=== PATIENT | male | born 1970 | race Caucasian/White ===

== ENCOUNTER 2016-03-15 17:56 | Emergency (ER) | payer MEDICARE, OTHER ==
[~2016-03-15] VITALS: Ht 152.4 cm; Wt 71.7 kg
[2016-03-15 19:49] LABS: Basophils # (auto) 0 uL; Basophils % (auto) 0.3 % (0.0-2.0); Eosinophils # (auto) 0.1 uL; Eosinophils % (auto) 0.4 % (0.0-7.0); Hematocrit 47.2 % (41.0-53.0); Hemoglobin 14.8 g/dL (13.5-17.5); Lymphocytes # (auto) 1.7 uL; Mean Corpuscular Hemoglobin 30.1 pg (28.0-32.0); Mean Corpuscular Hgb Conc. 31.3 g/dL (32.0-36.0); Mean Corpuscular Volume 96.2 fL (80.0-100.0); Mean Platelet Volume 9.5 fL (7.4-10.4); Monocytes # (auto) 1.3 uL; Neutrophils # (auto) 9.8 uL; Neutrophils % (auto) 76.3 % (37.0-80.0); Platelet Count (auto) 221 10^3/uL (140-450); Red Cell Distribution Width 13.8 % (11.6-16.0); White Blood Cell 12.8 10^3/uL (4.4-10.8)
[2016-03-15 20:42] LABS: Albumin 3.2 g/dL (3.4-5.0); Calcium 9.3 mg/dL (8.5-10.1)
[2016-03-15 20:45] LABS: BUN/Creatinine Ratio 15.2
[2016-03-15 20:47] LABS: Bilirubin, Total 0.2 mg/dL (0.2-1.0); Total Protein 8.7 g/dL (6.4-8.2)
[2016-03-16] MEDS ORDERED: CLOB2.5S OR (03:53)
[2016-03-16] MEDS ORDERED: DIVA500T53 PO (03:53)
[2016-03-16 05:45] VITALS: BP 112/70
[2016-03-16] MEDS ORDERED: cefTRIAXone 1GM/50ML D5W 50 ML IV ONE (05:45)
[2016-03-16] MEDS ORDERED: cefTRIAXone SOD 1,000 MG VL ONE (05:55)
== END 2016-03-16 06:54 | disposition home or self-care (01) ==
LOC: ER 18:11
DX: J06.9 Acute upper respiratory infection, unspecified (principal); J90 Pleural effusion, not elsewhere classified; K40.90 Unilateral inguinal hernia, without obstruction or gangrene, not specified as recurrent
CPT/HCPCS: 36415; 74176; 80053; 83690; 85025; 96365; 99285; J0696

== ENCOUNTER 2023-07-09 14:14 | Emergency (ER) | payer MEDICARE, MEDICAID ==
[~2023-07-09] VITALS: Ht 162.6 cm; Wt 81.8 kg
[~2023-07-09 14:14] MED LIST: CLOB2.5S OR; DIVA-91 PO
[2023-07-09 15:00] VITALS: PULSE 105; RESP 20; O2SAT 98
[2023-07-09] MEDS: DexAMETHasone SOD PHOS 10MG/1ML VIAL INJ IM ONE (15:18)
[2023-07-09] MEDS: ALBUTEROL SULF 2.5 MG/0.5ML(0.5%) NEB SOLN NEB ONE (15:22)
[2023-07-09] MEDS: IPRATROPIUM BROM 0.5 MG/2.5ML INH SOL NEB ONE (15:22)
[2023-07-09 15:35] LABS: Hematocrit 51.1 % (41.0-53.0); Hemoglobin 16.5 g/dL (13.5-17.5); Mean Corpuscular Hemoglobin 30.1 pg (28.0-32.0); Mean Corpuscular Hgb Conc. 32.4 g/dL (32.0-36.0); Mean Corpuscular Volume 92.9 fL (80.0-100.0); Red Cell Distribution Width 14.5 % (11.8-14.3); White Blood Cell 7.3 10^3/uL (4.4-10.8)
[2023-07-09 15:41] LABS: Basophils % (manual) 0 (0.0-2.0); Blast Cells 0; Metamyelocytes % 0; Myelocytes % 0; Promyelocytes % 0; Reactive Lymphocytes 0
[2023-07-09 15:52] LABS: Alkaline Phosphatase 62 U/L (46-116); Anion Gap 5 (5-15); Aspartate Aminotransferase 13 U/L (13-40); BUN/Creatinine Ratio 15.9 (10.0-20.0); Blood Urea Nitrogen 13 mg/dL (9-23); Calcium 9.7 mg/dL (8.7-10.4); Carbon Dioxide 33 mmol/L (20-30); Chloride 98 mmol/L (98-107); Glucose 141 mg/dL (74-106); Lipase 37 U/L (12-53); Sodium 136 mmol/L (136-145)
[2023-07-09 15:53] LABS: Bilirubin, Total 0.2 mg/dL (0.2-1.0)
[2023-07-09 15:54] LABS: Alanine Aminotransferase < 9 U/L (7-40)
[2023-07-09 16:58] LABS: Band Neutrophils % (manual) 9; Eosinophils % (manual) 1 (0-7); Lymphocytes % (manual) 18 (10.0-50.0); Monocytes % (manual) 18 (0-12); Platelet Estimate Adequate
[2023-07-09] MEDS ORDERED: DEXT60TA4 PO (17:19)
[2023-07-09 18:00] VITALS: BP 118/61; PULSE 98; RESP 26; O2SAT 90
== END 2023-07-09 18:45 | disposition home or self-care (01) ==
LOC: ER 14:14 → EDUNIT# 14:14 → EDBD 14:14 → ER 18:45
DX: J06.9 Acute upper respiratory infection, unspecified (principal); G80.9 Cerebral palsy, unspecified
CPT/HCPCS: 36415; 71045; 80053; 83605; 83690; 83880; 84484; 85007; 85027; 93005; 94640; 96372; 99285; J1100; J7644

== ENCOUNTER 2023-07-12 12:51 | Inpatient (IN) | payer MEDICARE, MEDICAID ==
[~2023-07-12] VITALS: Ht 154.9 cm; Wt 79.3 kg
[~2023-07-12 12:51] MED LIST changes: +DEXT60TA4 PO
[2023-07-12] MEDS: ALBUTEROL SULF 2.5 MG/0.5ML(0.5%) NEB SOLN NEB ONE (14:12)
[2023-07-12] MEDS: IPRATROPIUM BROM 0.5 MG/2.5ML INH SOL NEB ONE (14:12)
[2023-07-12 14:35] VITALS: PULSE 84; RESP 22; O2SAT 94
[2023-07-12 14:46] LABS: COVID19 ANTIGEN SOFIA FIA NEGATIVE (NEGATIVE)
[2023-07-12 14:47] LABS: Basophils # (auto) 0.1 10 ^3/uL (0-0.2); Basophils % (auto) 0.7 % (0.0-2.0); Eosinophils # (auto) 0.1 10 ^3/uL (0-0.8); Eosinophils % (auto) 0.7 % (0.0-7.0); Hematocrit 48.2 % (41.0-53.0); Hemoglobin 15.9 g/dL (13.5-17.5); Lymphocytes # (auto) 2.5 10 ^3/uL (0.4-5.4); Lymphocytes % (auto) 30.5 % (10.0-50.0); Mean Corpuscular Hemoglobin 30.5 pg (28.0-32.0); Mean Corpuscular Hgb Conc. 33.1 g/dL (32.0-36.0); Mean Corpuscular Volume 92.3 fL (80.0-100.0); Monocytes # (auto) 1.3 10 ^3/uL (0-1.3); Monocytes % (auto) 15.6 % (0.0-12.0); Neutrophils # (auto) 4.3 10 ^3/uL (1.6-8.6); Neutrophils % (auto) 52.5 % (37.0-80.0); Nucleated Red Blood Cells % 0.5 %; Red Blood Cells 5.22 10^6/uL (4.5-5.90); Red Cell Distribution Width 14.2 % (11.8-14.3); White Blood Cell 8.1 10^3/uL (4.4-10.8)
[2023-07-12 14:54] LABS: Chloride 96 mmol/L (98-107); Potassium 3.8 mmol/L (3.5-5.1); Sodium 134 mmol/L (136-145)
[2023-07-12 14:55] LABS: Anion Gap 2 (5-15); Calcium 9.3 mg/dL (8.7-10.4); Carbon Dioxide 36 mmol/L (20-30)
[2023-07-12 15:00] LABS: Blood Urea Nitrogen 13 mg/dL (9-23); Glucose 90 mg/dL (74-106)
[2023-07-12 15:06] LABS: Rapid Influenza A Negative (Negative); Rapid Influenza B Negative (Negative)
[2023-07-12] MEDS: LORazepam 2MG/ML-1ML VIAL ONE (15:58)
[2023-07-12] MEDS ORDERED: AZITHROMYCIN 500MG/ 250ML 250 ML IV ONE (16:15)
[2023-07-12] MEDS ORDERED: IPRATROPIUM BROM 0.5 MG/2.5ML INH SOL NEB PRN ×2 (16:15→16:30)
[2023-07-12] MEDS ORDERED: cefTRIAXone 1GM/50ML D5W 50 ML IV ONE (16:15)
[2023-07-12] MEDS ORDERED: ONDANSETRON HCL 4 MG/2 ML VIAL IV PRN ×2 (16:15→16:30)
[2023-07-12] MEDS ORDERED: ALBUTEROL SULF 2.5 MG/0.5ML(0.5%) NEB SOLN NEB PRN ×2 (16:15→16:30)
[2023-07-12] MEDS ORDERED: SODIUM CHLORIDE 0.9% 1,000 ML IV ONE (16:15)
[2023-07-12 16:19] VITALS: BP 141/86; PULSE 88; RESP 18; TEMP 98.9
[2023-07-12] MEDS ORDERED: LORazepam 2MG/ML-1ML VIAL IV PRN (16:30)
[2023-07-12] MEDS: AZITHROMYCIN 500MG/ 250ML 250 ML IV ONE (16:30)
[2023-07-12] MEDS: SODIUM CHLORIDE 0.9% 1,000 ML IV ONE (16:30)
[2023-07-12] MEDS ORDERED: QUET25TA37 PO (17:44)
[2023-07-12] MEDS ORDERED: ALBUTEROL SULF 2.5 MG/0.5ML(0.5%) NEB SOLN NEB SCH (18:00)
[2023-07-12] MEDS ORDERED: IPRATROPIUM BROM 0.5 MG/2.5ML INH SOL NEB SCH (18:00)
[2023-07-12 19:15] VITALS: PULSE 84; RESP 22; O2SAT 94
[2023-07-12] MEDS: cefTRIAXone 1GM/50ML D5W 50 ML IV ONE (19:59)
[2023-07-12 20:50] VITALS: PULSE 94; RESP 18; O2SAT 95
[2023-07-12 20:56] VITALS: PULSE 95; RESP 18; O2SAT 94
[2023-07-12] MEDS: ALBUTEROL SULF 2.5 MG/0.5ML(0.5%) NEB SOLN NEB SCH (21:21)
[2023-07-12] MEDS: IPRATROPIUM BROM 0.5 MG/2.5ML INH SOL NEB SCH (21:21)
[2023-07-12] MEDS ORDERED: PATIENTS OWN MEDICATION (Divalproex Sodium (Depakote) 1 TAB) PO SCH (22:00)
[2023-07-12] MEDS: PATIENTS OWN MEDICATION (Divalproex Sodium (Depakote) 1 TAB) PO SCH (23:19)
[2023-07-13] VITALS (18 sets, daily range): BP systolic 117–132; BP diastolic 65–78; PULSE 89–107; RESP 18–22; TEMP 98.1–98.5; O2SAT 90–99
[2023-07-13 05:10] LABS: Basophils # (auto) 0 10 ^3/uL (0-0.2); Basophils % (auto) 0.4 % (0.0-2.0); Eosinophils # (auto) 0.1 10 ^3/uL (0-0.8); Eosinophils % (auto) 0.6 % (0.0-7.0); Hematocrit 41.4 % (41.0-53.0); Hemoglobin 13.2 g/dL (13.5-17.5); Lymphocytes # (auto) 1.6 10 ^3/uL (0.4-5.4); Lymphocytes % (auto) 19.5 % (10.0-50.0); Mean Corpuscular Hemoglobin 30.1 pg (28.0-32.0); Mean Corpuscular Volume 94.1 fL (80.0-100.0); Monocytes # (auto) 1.4 10 ^3/uL (0-1.3); Monocytes % (auto) 16.6 % (0.0-12.0); Neutrophils # (auto) 5.2 10 ^3/uL (1.6-8.6); Neutrophils % (auto) 62.9 % (37.0-80.0); Nucleated Red Blood Cells % 0.2 %; White Blood Cell 8.3 10^3/uL (4.4-10.8)
[2023-07-13 05:23] LABS: Alanine Aminotransferase < 9 U/L (7-40); Albumin 3.1 g/dL (3.2-4.8); Alkaline Phosphatase 45 U/L (46-116); Anion Gap 2 (5-15); Aspartate Aminotransferase 14 U/L (13-40); Blood Urea Nitrogen 8 mg/dL (9-23); Calcium 7.7 mg/dL (8.7-10.4); Carbon Dioxide 34 mmol/L (20-30); Chloride 101 mmol/L (98-107); Glucose 80 mg/dL (74-106); Potassium 3.6 mmol/L (3.5-5.1); Sodium 137 mmol/L (136-145)
[2023-07-13 05:24] LABS: Bilirubin, Total < 0.2 mg/dL (0.2-1.0); Total Protein 6.2 g/dL (5.7-8.2)
[2023-07-13] MEDS ORDERED: cefTRIAXone 1GM/50ML D5W 50 ML IV SCH (09:00)
[2023-07-13] MEDS: cefTRIAXone 1GM/50ML D5W 50 ML IV SCH (09:00)
[2023-07-13] MEDS ORDERED: ENOXAPARIN SOD 40 MG/0.4 ML SYRINGE SC SCH (10:00)
[2023-07-13] MEDS ORDERED: AZITHROMYCIN 500MG/ 250ML 250 ML IV SCH (10:00)
[2023-07-13] MEDS: ENOXAPARIN SOD 40 MG/0.4 ML SYRINGE SC SCH (10:22)
[2023-07-13] MEDS: AZITHROMYCIN 500MG/ 250ML 250 ML IV SCH (10:22)
[2023-07-13] MEDS ORDERED: DIVA250T12 PO (10:29)
[2023-07-13] MEDS ORDERED: DIVA500T13 PO (10:46)
[2023-07-13] MEDS ORDERED: CLOB20TA3 PO (10:48)
[2023-07-13] MEDS ORDERED: LAMO200T62 OR (10:50)
[2023-07-13 11:37] LABS: INR 1.06 (0.9-1.15); Partial Thromboplastin Time 31.7 SEC (24.5-34.5); Prothrombin Time 11.2 sec (9.3-11.8)
[2023-07-13] MEDS ORDERED: PIPERACILLIN-TAZOB 3.375GM 100 ML IV SCH (22:00)
[2023-07-13] MEDS: PIPERACILLIN-TAZOB 3.375GM 100 ML IV SCH (22:12)
[2023-07-13] MEDS: [UNRECOGNIZED DRUG - OTHER] PO SCH (22:14)
[2023-07-13] MEDS: DIVALPROEX 125 MG PO SCH (22:14)
[2023-07-14] VITALS (59 sets, daily range): BP systolic 87–136; BP diastolic 57–98; PULSE 81–109; RESP 15–22; TEMP 97.7–101.7; O2SAT 90–100
[2023-07-14 06:46] LABS: Basophils # (auto) 0 10 ^3/uL (0-0.2); Basophils % (auto) 0.1 % (0.0-2.0); Eosinophils # (auto) 0 10 ^3/uL (0-0.8); Eosinophils % (auto) 0.4 % (0.0-7.0); Hematocrit 49.3 % (41.0-53.0); Hemoglobin 16.3 g/dL (13.5-17.5); Lymphocytes # (auto) 1.2 10 ^3/uL (0.4-5.4); Lymphocytes % (auto) 13.9 % (10.0-50.0); Mean Corpuscular Hemoglobin 30.7 pg (28.0-32.0); Mean Corpuscular Hgb Conc. 33.2 g/dL (32.0-36.0); Mean Corpuscular Volume 92.6 fL (80.0-100.0); Monocytes # (auto) 1.6 10 ^3/uL (0-1.3); Monocytes % (auto) 17.8 % (0.0-12.0); Neutrophils % (auto) 67.8 % (37.0-80.0); Nucleated Red Blood Cells % 0.1 %; Red Blood Cells 5.32 10^6/uL (4.5-5.90); Red Cell Distribution Width 14.3 % (11.8-14.3); White Blood Cell 8.8 10^3/uL (4.4-10.8)
[2023-07-14 07:04] LABS: Alanine Aminotransferase 10 U/L (7-40); Albumin 3.7 g/dL (3.2-4.8); Alkaline Phosphatase 57 U/L (46-116); Anion Gap 5 (5-15); Aspartate Aminotransferase 21 U/L (13-40); BUN/Creatinine Ratio 8.1 (10.0-20.0); Bilirubin, Total 0.2 mg/dL (0.2-1.0); Blood Urea Nitrogen 6 mg/dL (9-23); Calcium 9.5 mg/dL (8.7-10.4); Carbon Dioxide 33 mmol/L (20-30); Chloride 97 mmol/L (98-107); Glucose 85 mg/dL (74-106); Potassium 4.4 mmol/L (3.5-5.1); Sodium 135 mmol/L (136-145); Total Protein 7.7 g/dL (5.7-8.2)
[2023-07-14] MEDS: VALPROATE INJ 500 MG in SODIUM CHL 0.9% 100 ML IV SCH (10:30)
[2023-07-14 10:37] LABS: Base Excess 5.8 mmol/L (-2.0-2.0)
[2023-07-14] MEDS: ROCURONIUM 10MG/ML 10ML VIAL IV ONE ×3 (11:35→11:58)
[2023-07-14] MEDS: ETOMIDATE (2MG/ML) 20ML VIAL IV ONE ×4 (11:35→11:57)
[2023-07-14] MEDS: MIDAZOLAM DRIP 50 mg/50mL 50 ML IV ONE (11:36)
[2023-07-14] MEDS: fentaNYL Drip 2500mCg/250mlNS 250 ML IV ONE (11:36)
[2023-07-14 11:43] LABS: Base Excess 8.8 mmol/L (-2.0-2.0)
[2023-07-14] MEDS: NOREPINEPHRINE 8 MG/250ML KIT 250 ML IV ONE (11:59)
[2023-07-14] MEDS: MIDAZOLAM DRIP 50 mg/50mL 50 ML IV SCH (12:00)
[2023-07-14] MEDS: fentaNYL Drip 2500mCg/250mlNS 250 ML IV SCH (12:00)
[2023-07-14 12:29] LABS: Urine Bacteria None Seen /hpf (None Seen)
[2023-07-14 12:36] LABS: Urine Blood 3+ /uL (Negative); Urine Clarity Clear (Clear); Urine Color Yellow (Yellow); Urine Protein, UAD 1+ (Negative); Urine Specific Gravity 1.026 (1.001-1.035); Urine Urobilinogen Normal (Negative); Urine WBC 3 /hpf (0 - 3)
[2023-07-14 13:20] LABS: Base Excess 7.6 mmol/L (-2.0-2.0)
[2023-07-14] MEDS: NOREPINEPHRINE 8 MG/250ML KIT 250 ML IV SCH (14:00)
[2023-07-14] MEDS: PROPOFOL 100 ML IV SCH (14:15)
[2023-07-14] MEDS: ACETAMINOPHEN 650 MG RECT SUPP PR PRN (15:26)
[2023-07-14] MEDS: VALPROATE INJ 250 MG in SODIUM CHL 0.9% 50 ML IV SCH (18:19)
[2023-07-15] VITALS (111 sets, daily range): BP systolic 83–121; BP diastolic 45–77; PULSE 72–119; RESP 12–86; TEMP 99.3–101.8; O2SAT 92–100
[2023-07-15 06:54] LABS: Hematocrit 45.6 % (41.0-53.0); Hemoglobin 14.9 g/dL (13.5-17.5); Mean Corpuscular Hemoglobin 30.2 pg (28.0-32.0); Mean Corpuscular Hgb Conc. 32.7 g/dL (32.0-36.0); Mean Corpuscular Volume 92.5 fL (80.0-100.0); Red Blood Cells 4.93 10^6/uL (4.5-5.90); Red Cell Distribution Width 14.3 % (11.8-14.3); White Blood Cell 6.9 10^3/uL (4.4-10.8)
[2023-07-15 07:02] LABS: Alanine Aminotransferase 22 U/L (7-40); Albumin 3.4 g/dL (3.2-4.8); Alkaline Phosphatase 57 U/L (46-116); Anion Gap 7 (5-15); Aspartate Aminotransferase 47 U/L (13-40); BUN/Creatinine Ratio 11.3 (10.0-20.0); Blood Urea Nitrogen 7 mg/dL (9-23); Calcium 8.7 mg/dL (8.5-10.1); Carbon Dioxide 32 mmol/L (20-30); Chloride 97 mmol/L (98-107); Glucose 86 mg/dL (74-106); Potassium 3.3 mmol/L (3.5-5.1); Sodium 136 mmol/L (136-145)
[2023-07-15 07:04] LABS: Bilirubin, Total 0.6 mg/dL (0.2-1.0)
[2023-07-15 07:11] LABS: Basophils % (manual) 0 (0.0-2.0); Blast Cells 0; Eosinophils % (manual) 0 (0-7); Metamyelocytes % 0; Myelocytes % 0; Promyelocytes % 0; Reactive Lymphocytes 0
[2023-07-15 07:45] LABS: Base Excess 4.1 mmol/L (-2.0-2.0)
[2023-07-15 08:29] LABS: Blood Alcohol < 3.0 mg/dL (<10); Magnesium 1.9 mg/dL (1.6-2.6)
[2023-07-15 08:30] LABS: Band Neutrophils % (manual) 12; Lymphocytes % (manual) 21 (10.0-50.0); Monocytes % (manual) 10 (0-12); Phosphorus 3.6 mg/dL (2.4-5.1); Platelet Estimate Adequate
[2023-07-15] MEDS: POTASSIUM CHL 20MEQ/100ML 100 ML IV ONE (08:38)
[2023-07-15] MEDS ORDERED: Jevity 1.2 Cal/Fiber 1 Liter GT SCH ×2 (09:30→09:45)
[2023-07-15] MEDS: LAMOTRIGINE 200 MG PO SCH (10:00)
[2023-07-15] MEDS ORDERED: PANTOPRAZOLE 40 MG/10 ML VIAL INJ IV SCH (10:00)
[2023-07-15] MEDS: PANTOPRAZOLE 40 MG/10 ML VIAL INJ IV SCH (10:19)
[2023-07-15] MEDS: FUROSEMIDE 40 MG/4 ML VIAL IV SCH (10:19)
[2023-07-15] MEDS: CLOBAZAM 20 MG PO SCH (10:27)
[2023-07-15] MEDS: MEROPENEM 2GM/ 250ML 250 ML IV SCH (13:48)
[2023-07-15] MEDS: ACETAMINOPHEN 325 MG TAB PO PRN (14:47)
[2023-07-16] VITALS (111 sets, daily range): BP systolic 83–130; BP diastolic 38–81; PULSE 71–122; RESP 15–22; TEMP 97–101.3; O2SAT 93–100
[2023-07-16 05:57] LABS: Hematocrit 43.9 % (41.0-53.0); Hemoglobin 14.4 g/dL (13.5-17.5); Mean Corpuscular Hemoglobin 30.4 pg (28.0-32.0); Mean Corpuscular Hgb Conc. 32.7 g/dL (32.0-36.0); Mean Corpuscular Volume 92.9 fL (80.0-100.0); Red Blood Cells 4.73 10^6/uL (4.5-5.90); Red Cell Distribution Width 14.4 % (11.8-14.3); White Blood Cell 8.8 10^3/uL (4.4-10.8)
[2023-07-16 06:00] LABS: Band Neutrophils % (manual) 0; Basophils % (manual) 0 (0.0-2.0); Blast Cells 0; Metamyelocytes % 0; Myelocytes % 0; Promyelocytes % 0; Reactive Lymphocytes 0
[2023-07-16 06:31] LABS: Alanine Aminotransferase 84 U/L (7-40); Albumin 3.3 g/dL (3.2-4.8); Alkaline Phosphatase 62 U/L (46-116); Anion Gap 3 (5-15); Aspartate Aminotransferase 147 U/L (13-40); BUN/Creatinine Ratio 15.4 (10.0-20.0); Bilirubin, Total 0.5 mg/dL (0.2-1.0); Blood Urea Nitrogen 10 mg/dL (9-23); Calcium 8.6 mg/dL (8.5-10.1); Carbon Dioxide 34 mmol/L (20-30); Chloride 99 mmol/L (98-107); Cholesterol 90 mg/dL (< 200); Glucose 83 mg/dL (74-106); HDL Cholesterol 26 mg/dL (40-59); LDL Cholesterol 34 mg/dL (< 100); Magnesium 1.8 mg/dL (1.6-2.6); Phosphorus 3.1 mg/dL (2.4-5.1); Potassium 4.1 mmol/L (3.5-5.1); Sodium 136 mmol/L (136-145); Total Protein 6.9 g/dL (5.7-8.2); Triglycerides 138 mg/dL (< 150)
[2023-07-16 08:26] LABS: Base Excess 2.3 mmol/L (-2.0-2.0)
[2023-07-16] MEDS: LORazepam 2MG/ML-1ML VIAL IV PRN (09:02)
[2023-07-16] MEDS: FUROSEMIDE 40 MG/4 ML VIAL IV SCH (10:22)
[2023-07-16 10:43] LABS: Hepatitis B Surface Antigen Negative (Negative)
[2023-07-16 11:04] LABS: Hepatitis A Ab IgM Negative; Hepatitis B Core IgM Negative
[2023-07-16 11:05] LABS: Hepatitis C Antibody Negative (Negative)
[2023-07-16 12:22] LABS: Lymphocytes % (manual) 13 (10.0-50.0)
[2023-07-16 12:23] LABS: Eosinophils % (manual) 3 (0-7); Monocytes % (manual) 17 (0-12); Platelet Estimate Adequate
[2023-07-16] MEDS: CLOBAZAM 20 MG PO SCH (13:23)
[2023-07-16] MEDS: NOREPINEPHRINE 8 MG/250ML KIT 250 ML IV SCH (16:15)
[2023-07-17] VITALS (111 sets, daily range): BP systolic 66–136; BP diastolic 30–86; PULSE 70–119; RESP 14–64; TEMP 96.1–100.2; O2SAT 90–99
[2023-07-17 05:10] LABS: Basophils # (auto) 0 10 ^3/uL (0-0.2); Basophils % (auto) 0.6 % (0.0-2.0); Eosinophils # (auto) 0.3 10 ^3/uL (0-0.8); Eosinophils % (auto) 3.9 % (0.0-7.0); Hematocrit 43.5 % (41.0-53.0); Hemoglobin 14.2 g/dL (13.5-17.5); Lymphocytes # (auto) 1.3 10 ^3/uL (0.4-5.4); Lymphocytes % (auto) 18.3 % (10.0-50.0); Mean Corpuscular Hemoglobin 30.1 pg (28.0-32.0); Mean Corpuscular Hgb Conc. 32.7 g/dL (32.0-36.0); Mean Corpuscular Volume 92.1 fL (80.0-100.0); Monocytes # (auto) 1.4 10 ^3/uL (0-1.3); Neutrophils # (auto) 3.9 10 ^3/uL (1.6-8.6); Neutrophils % (auto) 56.4 % (37.0-80.0); Nucleated Red Blood Cells % 0.1 %; Red Blood Cells 4.72 10^6/uL (4.5-5.90); Red Cell Distribution Width 14.7 % (11.8-14.3); White Blood Cell 6.9 10^3/uL (4.4-10.8)
[2023-07-17 05:21] LABS: Monocytes % (auto) 20.8 % (0.0-12.0)
[2023-07-17 05:27] LABS: Alanine Aminotransferase 119 U/L (7-40); Albumin 3.4 g/dL (3.2-4.8); Alkaline Phosphatase 86 U/L (46-116); Anion Gap 4 (5-15); Aspartate Aminotransferase 151 U/L (13-40); BUN/Creatinine Ratio 18.5 (10.0-20.0); Blood Urea Nitrogen 12 mg/dL (9-23); Carbon Dioxide 35 mmol/L (20-30); Chloride 98 mmol/L (98-107); Glucose 71 mg/dL (74-106); Magnesium 1.8 mg/dL (1.6-2.6); Potassium 3.7 mmol/L (3.5-5.1); Sodium 137 mmol/L (136-145)
[2023-07-17 05:28] LABS: Bilirubin, Total 0.4 mg/dL (0.2-1.0); Phosphorus 2.7 mg/dL (2.4-5.1); Total Protein 7.3 g/dL (5.7-8.2)
[2023-07-17 06:28] LABS: Base Excess 3.2 mmol/L (-2.0-2.0)
[2023-07-17 07:07] LABS: CMV IgG Antibody <0.60 U/mL (0.00-0.59); CMV IgM Antibody <30.0 AU/mL (0.0-29.9); EBV Ab VCA IgM Antibody <36.0 U/mL (0.0-35.9)
[2023-07-17] MEDS ORDERED: DEXTROSE (50%) 50ML SYRG IV PRN (10:45)
[2023-07-17] MEDS ORDERED: DIVALPROEX SODIUM 125 MG PO SCH (10:45)
[2023-07-17] MEDS: ACCU-CHEK COMFORT CURVE STRIP VI SCH (10:59)
[2023-07-17 11:15] LABS: Urine Bacteria None Seen /hpf (None Seen)
[2023-07-17 11:27] LABS: Urine Blood 2+ /uL (Negative); Urine Clarity Clear (Clear); Urine Color Yellow (Yellow); Urine Hyaline Cast FEW /lpf (0 - 2); Urine Mucus FEW (None Seen); Urine Protein, UAD 2+ (Negative); Urine Specific Gravity 1.036 (1.001-1.035); Urine Urobilinogen 4 mg/dL (Negative); Urine WBC 15 /hpf (0 - 3)
[2023-07-17 11:35] LABS: Amphetamine Screen, Urine Neg (NEGATIVE); Barbiturate Scree,Urine Neg (NEGATIVE); Benzodiazephine Screen, Urine Pos (NEGATIVE); Cocaine Screen, Urine Neg (NEGATIVE); Opiate Scree,Urine Neg (NEGATIVE); Phencyclidine Screen, Urine Neg (NEGATIVE)
[2023-07-17 11:36] LABS: Cannabinoid Screen, Urine Neg (NEGATIVE)
[2023-07-17] MEDS: CLOBAZAM 20 MG PO SCH (12:30)
[2023-07-17] MEDS: D5W 5% 1,000 ML IV SCH (17:27)
[2023-07-17] MEDS: MIDAZOLAM DRIP 50 mg/50mL 100 ML IV ONE (21:15)
[2023-07-17] MEDS ORDERED: CLOBAZAM 20 MG PO SCH (22:00)
[2023-07-17] MEDS: DEPAKOTE 125 MG PO SCH (22:08)
[2023-07-18] VITALS (106 sets, daily range): BP systolic 82–139; BP diastolic 34–82; PULSE 63–113; RESP 15–25; TEMP 97.5–99.3; O2SAT 95–100
[2023-07-18 05:46] LABS: Alanine Aminotransferase 107 U/L (7-40); Albumin 3.2 g/dL (3.2-4.8); Alkaline Phosphatase 83 U/L (46-116); Anion Gap 9 (5-15); Aspartate Aminotransferase 109 U/L (13-40); BUN/Creatinine Ratio 16.1 (10.0-20.0); Blood Urea Nitrogen 10 mg/dL (9-23); Carbon Dioxide 33 mmol/L (20-30); Chloride 95 mmol/L (98-107); Glucose 86 mg/dL (74-106); Magnesium 1.6 mg/dL (1.6-2.6); Potassium 3.4 mmol/L (3.5-5.1); Sodium 137 mmol/L (136-145)
[2023-07-18 05:47] LABS: Bilirubin, Total 0.3 mg/dL (0.2-1.0); Phosphorus 2.8 mg/dL (2.4-5.1); Total Protein 7.1 g/dL (5.7-8.2)
[2023-07-18 06:04] LABS: Hemoglobin 13.4 g/dL (13.5-17.5); Mean Corpuscular Hemoglobin 30.6 pg (28.0-32.0); Mean Corpuscular Hgb Conc. 33.3 g/dL (32.0-36.0); Mean Corpuscular Volume 91.8 fL (80.0-100.0); Red Blood Cells 4.36 10^6/uL (4.5-5.90); Red Cell Distribution Width 14.5 % (11.8-14.3); White Blood Cell 6.8 10^3/uL (4.4-10.8)
[2023-07-18 06:07] LABS: Basophils % (manual) 0 (0.0-2.0); Blast Cells 0; Metamyelocytes % 0; Myelocytes % 0; Promyelocytes % 0; Reactive Lymphocytes 0
[2023-07-18 08:01] LABS: Base Excess 8.7 mmol/L (-2.0-2.0)
[2023-07-18 09:46] LABS: Band Neutrophils % (manual) 5; Eosinophils % (manual) 2 (0-7); Lymphocytes % (manual) 25 (10.0-50.0); Monocytes % (manual) 24 (0-12)
[2023-07-18 09:47] LABS: Platelet Estimate Adequate
[2023-07-18] MEDS: POTASSIUM CHL 20MEQ/100ML 100 ML IV ONE (10:50)
[2023-07-18] MEDS ORDERED: Jevity 1.2 Cal/Fiber 1 Liter GT SCH (17:30)
[2023-07-19] VITALS (112 sets, daily range): BP systolic 83–122; BP diastolic 41–79; PULSE 68–119; RESP 10–22; TEMP 89.4–99.7; O2SAT 92–100
[2023-07-19 05:28] LABS: Basophils # (auto) 0 10 ^3/uL (0-0.2); Basophils % (auto) 0.7 % (0.0-2.0); Eosinophils # (auto) 0.3 10 ^3/uL (0-0.8); Eosinophils % (auto) 4.2 % (0.0-7.0); Hematocrit 40.3 % (41.0-53.0); Hemoglobin 13.2 g/dL (13.5-17.5); Lymphocytes # (auto) 1.9 10 ^3/uL (0.4-5.4); Lymphocytes % (auto) 27.5 % (10.0-50.0); Mean Corpuscular Hemoglobin 30.1 pg (28.0-32.0); Mean Corpuscular Hgb Conc. 32.8 g/dL (32.0-36.0); Mean Corpuscular Volume 91.8 fL (80.0-100.0); Monocytes # (auto) 1.2 10 ^3/uL (0-1.3); Monocytes % (auto) 16.9 % (0.0-12.0); Neutrophils # (auto) 3.5 10 ^3/uL (1.6-8.6); Neutrophils % (auto) 50.7 % (37.0-80.0); Red Blood Cells 4.39 10^6/uL (4.5-5.90); Red Cell Distribution Width 14.4 % (11.8-14.3); White Blood Cell 6.9 10^3/uL (4.4-10.8)
[2023-07-19 05:34] LABS: Alanine Aminotransferase 75 U/L (7-40); Albumin 3.3 g/dL (3.2-4.8); Alkaline Phosphatase 76 U/L (46-116); Anion Gap 8 (5-15); Aspartate Aminotransferase 57 U/L (13-40); BUN/Creatinine Ratio 12.3 (10.0-20.0); Blood Urea Nitrogen 7 mg/dL (9-23); Calcium 9.1 mg/dL (8.7-10.4); Carbon Dioxide 32 mmol/L (20-30); Chloride 96 mmol/L (98-107); Glucose 76 mg/dL (74-106); Magnesium 1.5 mg/dL (1.6-2.6); Potassium 3.3 mmol/L (3.5-5.1); Sodium 136 mmol/L (136-145); Total Protein 7.1 g/dL (5.7-8.2)
[2023-07-19 05:35] LABS: Bilirubin, Total 0.3 mg/dL (0.2-1.0); Phosphorus 2.4 mg/dL (2.4-5.1)
[2023-07-19] MEDS ORDERED: SOD CHL 0.9%/ KCL 20MEQ 1,000 ML IV SCH (06:30)
[2023-07-19 07:33] LABS: Base Excess 7.9 mmol/L (-2.0-2.0)
[2023-07-19] MEDS: POTASSIUM CHL 20MEQ/100ML 100 ML IV ONE (08:32)
[2023-07-19] MEDS: MAGNESIUM SULFATE 1GM/100ML 100 ML IV ONE (08:32)
[2023-07-19] MEDS ORDERED: POTASSIUM CHL 20MEQ/100ML 100 ML IV SCH (09:15)
[2023-07-19] MEDS ORDERED: MAGNESIUM SULFATE 1GM/100ML 100 ML IV ONE (09:15)
[2023-07-19] MEDS: POTASSIUM CHL 20MEQ/100ML 100 ML IV SCH (11:13)
[2023-07-19] MEDS: MEROPENEM 2GM/ 250ML 250 ML IV SCH (11:38)
[2023-07-20] VITALS (107 sets, daily range): BP systolic 86–137; BP diastolic 45–85; PULSE 70–110; RESP 12–38; TEMP 96.8–99.7; O2SAT 90–100
[2023-07-20 05:22] LABS: Basophils # (auto) 0.1 10 ^3/uL (0-0.2); Basophils % (auto) 0.7 % (0.0-2.0); Eosinophils # (auto) 0.2 10 ^3/uL (0-0.8); Eosinophils % (auto) 3.2 % (0.0-7.0); Hematocrit 35.9 % (41.0-53.0); Hemoglobin 12.3 g/dL (13.5-17.5); Lymphocytes # (auto) 1.9 10 ^3/uL (0.4-5.4); Lymphocytes % (auto) 26.4 % (10.0-50.0); Mean Corpuscular Hemoglobin 30.9 pg (28.0-32.0); Mean Corpuscular Hgb Conc. 34.2 g/dL (32.0-36.0); Mean Corpuscular Volume 90.2 fL (80.0-100.0); Monocytes # (auto) 1.2 10 ^3/uL (0-1.3); Monocytes % (auto) 16.9 % (0.0-12.0); Neutrophils # (auto) 3.7 10 ^3/uL (1.6-8.6); Neutrophils % (auto) 52.8 % (37.0-80.0); Red Blood Cells 3.98 10^6/uL (4.5-5.90); Red Cell Distribution Width 14.3 % (11.8-14.3); White Blood Cell 7.1 10^3/uL (4.4-10.8)
[2023-07-20 05:40] LABS: Alanine Aminotransferase 53 U/L (7-40); Albumin 3.2 g/dL (3.2-4.8); Alkaline Phosphatase 71 U/L (46-116); Anion Gap 6 (5-15); Aspartate Aminotransferase 33 U/L (13-40); BUN/Creatinine Ratio 15.1 (10.0-20.0); Blood Urea Nitrogen 8 mg/dL (9-23); Calcium 9.2 mg/dL (8.5-10.1); Carbon Dioxide 31 mmol/L (20-30); Chloride 99 mmol/L (98-107); Glucose 88 mg/dL (74-106); Potassium 3.5 mmol/L (3.5-5.1); Sodium 136 mmol/L (136-145)
[2023-07-20 05:41] LABS: Bilirubin, Total 0.3 mg/dL (0.2-1.0); Total Protein 6.9 g/dL (5.7-8.2)
[2023-07-20 08:41] LABS: Magnesium 1.9 mg/dL (1.6-2.6)
[2023-07-20 08:42] LABS: Phosphorus 3.2 mg/dL (2.4-5.1)
[2023-07-20] MEDS: POTASSIUM CHL 20MEQ/100ML 100 ML IV ONE (14:07)
[2023-07-20 15:18] LABS: Base Excess 4.8 mmol/L (-2.0-2.0)
[2023-07-21] VITALS (100 sets, daily range): BP systolic 95–176; BP diastolic 35–145; PULSE 82–134; RESP 10–40; TEMP 97.3–100.9; O2SAT 84–99
[2023-07-21 05:10] LABS: Basophils # (auto) 0.1 10 ^3/uL (0-0.2); Basophils % (auto) 0.7 % (0.0-2.0); Eosinophils # (auto) 0.1 10 ^3/uL (0-0.8); Eosinophils % (auto) 1.8 % (0.0-7.0); Hemoglobin 12.8 g/dL (13.5-17.5); Lymphocytes # (auto) 1.2 10 ^3/uL (0.4-5.4); Mean Corpuscular Hgb Conc. 33.8 g/dL (32.0-36.0); Mean Corpuscular Volume 91.7 fL (80.0-100.0); Monocytes % (auto) 13.4 % (0.0-12.0); Neutrophils # (auto) 5.4 10 ^3/uL (1.6-8.6); Neutrophils % (auto) 69.1 % (37.0-80.0); Red Blood Cells 4.14 10^6/uL (4.5-5.90); Red Cell Distribution Width 14.6 % (11.8-14.3); White Blood Cell 7.8 10^3/uL (4.4-10.8)
[2023-07-21 05:33] LABS: Alanine Aminotransferase 42 U/L (7-40); Albumin 3.5 g/dL (3.2-4.8); Alkaline Phosphatase 69 U/L (46-116); Anion Gap 11 (5-15); Aspartate Aminotransferase 23 U/L (13-40); BUN/Creatinine Ratio 11.9 (10.0-20.0); Blood Urea Nitrogen 8 mg/dL (9-23); Carbon Dioxide 26 mmol/L (20-30); Chloride 101 mmol/L (98-107); Glucose 85 mg/dL (74-106); Magnesium 1.8 mg/dL (1.6-2.6); Potassium 4.5 mmol/L (3.5-5.1); Sodium 138 mmol/L (136-145)
[2023-07-21 05:34] LABS: Bilirubin, Total 0.3 mg/dL (0.2-1.0); Phosphorus 3.3 mg/dL (2.4-5.1); Total Protein 7.6 g/dL (5.7-8.2)
[2023-07-21 07:14] LABS: Base Excess -0.8 mmol/L (-2.0-2.0)
[2023-07-21] MEDS: FUROSEMIDE 40 MG/4 ML VIAL IV SCH (08:25)
[2023-07-21 08:38] LABS: Base Excess 1.1 mmol/L (-2.0-2.0)
[2023-07-21] MEDS: FUROSEMIDE 20 MG/2 ML VIAL IV SCH (09:02)
[2023-07-21] MEDS: ACETAMINOPHEN 650 MG RECT SUPP PR PRN (20:15)
[2023-07-21] MEDS: levETIRAcetam 1000 mg/100ml 100 ML IV SCH (22:01)
[2023-07-21] MEDS: VALPROATE INJ 250 MG in SODIUM CHL 0.9% 50 ML IV SCH (22:24)
[2023-07-22] VITALS (35 sets, daily range): BP systolic 103–145; BP diastolic 57–91; PULSE 65–120; RESP 16–33; TEMP 98.2–99.5; O2SAT 90–100
[2023-07-22 06:14] LABS: Basophils # (auto) 0.1 10 ^3/uL (0-0.2); Basophils % (auto) 0.9 % (0.0-2.0); Eosinophils # (auto) 0.3 10 ^3/uL (0-0.8); Eosinophils % (auto) 3.5 % (0.0-7.0); Hematocrit 41.5 % (41.0-53.0); Hemoglobin 14.1 g/dL (13.5-17.5); Lymphocytes # (auto) 1.8 10 ^3/uL (0.4-5.4); Lymphocytes % (auto) 18.9 % (10.0-50.0); Mean Corpuscular Hemoglobin 30.9 pg (28.0-32.0); Monocytes # (auto) 1.3 10 ^3/uL (0-1.3); Monocytes % (auto) 13.5 % (0.0-12.0); Neutrophils # (auto) 6.1 10 ^3/uL (1.6-8.6); Neutrophils % (auto) 63.2 % (37.0-80.0); Nucleated Red Blood Cells % 0.1 %; Red Blood Cells 4.56 10^6/uL (4.5-5.90); Red Cell Distribution Width 14.7 % (11.8-14.3); White Blood Cell 9.7 10^3/uL (4.4-10.8)
[2023-07-22 06:32] LABS: Alanine Aminotransferase 34 U/L (7-40); Albumin 3.9 g/dL (3.2-4.8); Alkaline Phosphatase 72 U/L (46-116); Anion Gap 10 (5-15); Aspartate Aminotransferase 21 U/L (13-40); Blood Urea Nitrogen 9 mg/dL (9-23); Calcium 10.2 mg/dL (8.5-10.1); Carbon Dioxide 28 mmol/L (20-30); Chloride 99 mmol/L (98-107); Glucose 76 mg/dL (74-106); Magnesium 1.6 mg/dL (1.6-2.6); Potassium 3.6 mmol/L (3.5-5.1); Sodium 137 mmol/L (136-145)
[2023-07-22 06:33] LABS: Bilirubin, Total 0.3 mg/dL (0.2-1.0); Total Protein 8.3 g/dL (5.7-8.2)
[2023-07-22] MEDS: levoFLOXacin 500MG 100 ML IV SCH (08:03)
[2023-07-22] MEDS: POTASSIUM CHL 20MEQ/100ML 100 ML IV ONE (09:01)
[2023-07-22] MEDS: MAGNESIUM SULFATE 1GM/100ML 100 ML IV ONE ×2 (09:22→15:15)
[2023-07-22] MEDS ORDERED: DOCUSATE SOD 100 MG CAP PO PRN (16:45)
[2023-07-23] VITALS (23 sets, daily range): BP systolic 115–149; BP diastolic 70–93; PULSE 72–120; RESP 16–27; TEMP 97.8–99.1; O2SAT 88–100
[2023-07-23 06:47] LABS: Anion Gap 9 (5-15); Calcium 10.2 mg/dL (8.5-10.1); Carbon Dioxide 27 mmol/L (20-30); Chloride 100 mmol/L (98-107); Potassium 3.8 mmol/L (3.5-5.1); Sodium 136 mmol/L (136-145)
[2023-07-23 06:53] LABS: BUN/Creatinine Ratio 13.7 (10.0-20.0); Blood Urea Nitrogen 10 mg/dL (9-23); Glucose 99 mg/dL (74-106)
[2023-07-23 06:54] LABS: Magnesium 1.8 mg/dL (1.6-2.6)
[2023-07-23 06:59] LABS: Eosinophils # (auto) 0.2 10 ^3/uL (0-0.8); Hemoglobin 13.8 g/dL (13.5-17.5)
[2023-07-23 07:05] LABS: Basophils # (auto) 0.1 10 ^3/uL (0-0.2); Basophils % (auto) 0.7 % (0.0-2.0); Hematocrit 41.2 % (41.0-53.0); Lymphocytes # (auto) 1.7 10 ^3/uL (0.4-5.4); Lymphocytes % (auto) 21.9 % (10.0-50.0); Mean Corpuscular Hemoglobin 30.6 pg (28.0-32.0); Mean Corpuscular Hgb Conc. 33.5 g/dL (32.0-36.0); Mean Corpuscular Volume 91.1 fL (80.0-100.0); Monocytes % (auto) 12.9 % (0.0-12.0); Neutrophils % (auto) 62.5 % (37.0-80.0); Red Blood Cells 4.53 10^6/uL (4.5-5.90); Red Cell Distribution Width 14.5 % (11.8-14.3)
[2023-07-23] MEDS: IPRATROPIUM BROM 0.5 MG/2.5ML INH SOL NEB SCH (10:15)
[2023-07-23] MEDS: ALBUTEROL SULF 2.5 MG/0.5ML(0.5%) NEB SOLN NEB SCH (10:16)
[2023-07-23] MEDS: levoFLOXacin 500 MG TAB PO SCH (10:21)
[2023-07-23] MEDS: FUROSEMIDE 40 MG TAB PO SCH (10:21)
[2023-07-23] MEDS: METOPROLOL TARTRATE 25 MG TAB PO SCH (10:22)
[2023-07-23] MEDS ORDERED: ALBUTEROL SULF 2.5 MG/0.5ML(0.5%) NEB SOLN NEB PRN (10:45)
[2023-07-23] MEDS ORDERED: IPRATROPIUM BROM 0.5 MG/2.5ML INH SOL NEB PRN (10:45)
[2023-07-24] VITALS (9 sets, daily range): BP systolic 102–116; BP diastolic 59–67; PULSE 92–106; RESP 18–22; TEMP 97.9–99.4; O2SAT 92–97
[2023-07-24 06:37] LABS: Anion Gap 8 (5-15); Carbon Dioxide 27 mmol/L (20-30); Chloride 101 mmol/L (98-107); Potassium 3.6 mmol/L (3.5-5.1); Sodium 136 mmol/L (136-145)
[2023-07-24 06:43] LABS: BUN/Creatinine Ratio 16.7 (10.0-20.0); Blood Urea Nitrogen 10 mg/dL (9-23); Glucose 111 mg/dL (74-106)
[2023-07-24 06:44] LABS: Magnesium 1.6 mg/dL (1.6-2.6)
[2023-07-24] MEDS: METOPROLOL TARTRATE 25 MG TAB PO SCH (10:45)
[2023-07-24] MEDS ORDERED: METO25TA36 PO (11:59)
[2023-07-24] MEDS ORDERED: LISI2.5T47 PO (11:59)
[2023-07-24] MEDS ORDERED: LEVO500T91 PO (11:59)
[2023-07-25 01:00] VITALS: BP 110/65; PULSE 82; RESP 20; TEMP 97.8; O2SAT 97
[2023-07-25 05:00] VITALS: BP 109/67; PULSE 89; RESP 20; TEMP 97.6; O2SAT 96
[2023-07-25 07:41] VITALS: BP 110/65; PULSE 82; RESP 20; TEMP 36.4; O2SAT 92
[2023-07-25 08:00] VITALS: PULSE 99; RESP 20
[2023-07-25 08:46] VITALS: BP 116/74; PULSE 104; RESP 18; TEMP 98.6; O2SAT 94
== END 2023-07-25 09:40 | disposition home health service (06) | DRG 207 ==
LOC: ER 12:54 → OVERFLOW 16:15 → WEST WING 07-13 08:16 → TELE-WESTW 07-14 11:12 → ICU CENTRL 07-14 13:14 → TELE-WESTW 07-22 21:15
PROVIDERS: ADMIT Internal Medicine; ATTEND Internal Medicine
PROC: 5A1955Z Respiratory Ventilation, Greater than 96 Consecutive Hours (ICD-10-PCS; principal; 2023-07-14)
PROC: 0BH17EZ Insertion of Endotracheal Airway into Trachea, Via Natural or Artificial Opening (ICD-10-PCS; 2023-07-14)
PROC: 02HV33Z Insertion of Infusion Device into Superior Vena Cava, Percutaneous Approach (ICD-10-PCS; 2023-07-14)
PROC: 5A09357 Assistance with Respiratory Ventilation, Less than 24 Consecutive Hours, Continuous Positive Airway Pressure (ICD-10-PCS; 2023-07-14)
PROC: 5A0935A Assistance with Respiratory Ventilation, Less than 24 Consecutive Hours, High Flow/Velocity Cannula (ICD-10-PCS; 2023-07-21)
DX: J96.01 Acute respiratory failure with hypoxia (principal); J69.0 Pneumonitis due to inhalation of food and vomit; G93.41 Metabolic encephalopathy; I50.23 Acute on chronic systolic (congestive) heart failure; A48.1 Legionnaires' disease; E87.4 Mixed disorder of acid-base balance; G93.1 Anoxic brain damage, not elsewhere classified; Z20.822 Contact with and (suspected) exposure to COVID-19; E66.01 Morbid (severe) obesity due to excess calories; E87.8 Other disorders of electrolyte and fluid balance, not elsewhere classified; J06.9 Acute upper respiratory infection, unspecified; M81.0 Age-related osteoporosis without current pathological fracture; F79 Unspecified intellectual disabilities; G40.901 Epilepsy, unspecified, not intractable, with status epilepticus; E87.6 Hypokalemia; R74.01 Elevation of levels of liver transaminase levels; E21.0 Primary hyperparathyroidism; Z79.899 Other long term (current) drug therapy; Z68.33 Body mass index [BMI] 33.0-33.9, adult
CPT/HCPCS: 36415; 36600; 70450; 71045; 71250; 74176; 76705; 80048; 80053; 80061; 80074; 80307; 80320; 81001; 82306; 82805; 82962; 83036; 83605; 83615; 83690; 83735; 83880; 83970; 84100; 84443; 84484; 85007; 85025; 85027; 85379; 85610; 85730; 86644; 86645; 86664; 87040; 87070; 87077; 87081; 87086; 87186; 87205; 87278; 87426; 87804; 92610; 93005; 93306; 93970; 94002; 94003; 94640; 94660; 95819; 96372; 96374; 97163; C9113; G0378; J1100; J1956; J2543; J3480; J7060

== ENCOUNTER 2023-08-19 15:08 | Emergency (ER) | payer MEDICARE, MEDICAID ==
[~2023-08-19] VITALS: Ht 154.9 cm; Wt 68.0 kg
[~2023-08-19 15:08] MED LIST changes: -CLOB2.5S OR; +CLOB20TA3 PO; -DIVA-91 PO; +DIVA250T12 PO; +DIVA500T13 PO; +LAMO200T62 OR; +LEVO500T91 PO; +LISI2.5T47 PO; +METO25TA36 PO; +QUET25TA37 PO
[2023-08-19 17:45] VITALS: BP 139/83; PULSE 103; RESP 16; TEMP 97.9; O2SAT 96
[2023-08-19] MEDS ORDERED: CEPH500C PO (20:00)
[2023-08-19] MEDS ORDERED: ACET500T58 PO (20:01)
== END 2023-08-19 20:13 | disposition home or self-care (01) ==
LOC: ER 15:08
DX: S01.01XA Laceration without foreign body of scalp, initial encounter (principal); R51.9 Headache, unspecified; Z79.899 Other long term (current) drug therapy; W18.39XA Other fall on same level, initial encounter; Y93.89 Activity, other specified; Y92.89 Other specified places as the place of occurrence of the external cause; Y99.8 Other external cause status
CPT/HCPCS: 12002; 70450

== ENCOUNTER 2024-10-25 14:06 | Outpatient (CLI) | payer MEDICARE, MEDICAID ==
[~2024-10-25 14:06] MED LIST changes: +ACET500T58 PO; +CEPH500C PO
== END 2024-10-25 17:00 | disposition home or self-care (01) ==
LOC: LAB 14:06
PROVIDERS: ATTEND Urology
DX: N40.1 Benign prostatic hyperplasia with lower urinary tract symptoms (principal)
CPT/HCPCS: 84153